=== PATIENT | male | born 1990 | race African-American/Black ===

== ENCOUNTER 2018-10-25 16:35 | Emergency (ER) | payer MEDICAID ==
[~2018-10-25] VITALS: Ht 182.9 cm; Wt 63.5 kg
[2018-10-25 16:42] VITALS: BP_SYST 150
--- NOTE | 2018-10-25 16:46 | NUR ---
Patient triaged and placed in waiting room. VSS and patient appears in no acute distress at this time. Accompanied by self, awaiting available bed, and MD notified of need for MSE.
--- NOTE | 2018-10-25 17:23 | NUR ---
Pt placed in bed 2
--- NOTE | 2018-10-25 17:28 | NUR ---
STEVAN Lawton at bedside examining patient.
--- NOTE | 2018-10-25 17:48 | NUR ---
Pt went to radiology in stable condition
[2018-10-25 18:40] LABS: BILIRUBIN,URINE NEGATIVE (NEGATIVE); CLARITY/URINE SL HAZY (CLEAR); COLOR,URINE YELLOW (YELLOW); GLUCOSE,URINE NEGATIVE (NEGATIVE); KETONES,URINE NEGATIVE (NEGATIVE); LEUKOCYTE ESTERASE ,URINE TRACE (NEGATIVE); NITRITE, URINE NEGATIVE (NEGATIVE); PROTEIN URINE NEGATIVE (NEGATIVE); UROBILINOGEN,URINE 0.2 (0.2-1.0)
[2018-10-25 19:10] LABS: BLOOD, URINE TRACE (NEGATIVE)
[2018-10-25 19:11] LABS: BACTERIA,URINE FEW /HPF (None Seen); WBC,URINE 20-50 /HPF (0-3)
[2018-10-25 19:12] LABS: MUCUS,URINE 2+ /LPF (None Seen)
[2018-10-25 19:19] VITALS: BP_SYST 150
--- NOTE | 2018-10-25 19:19 | NUR ---
Patient given written and verbal discharge instructions and verbalizes understanding. ER MD Dr. Quach discussed with patient the results and treatment provided. Patient in stable condition. ID arm band removed. Patient educated on pain management and to follow up with PMD within 2-3 days. Pain Scale 0/10. Opportunity for questions provided and answered. Medication side effect fact sheet provided.
== END 2018-10-25 19:19 | disposition home or self-care (01) ==
LOC: SED 16:35
DX: R36.1 Hematospermia (principal); K59.00 Constipation, unspecified
CPT/HCPCS: 76870-TC; 81000-TC; 87086; 99284

== ENCOUNTER 2018-10-27 14:08 | Emergency (ER) | payer MEDICAID ==
[~2018-10-27] VITALS: Ht 182.9 cm; Wt 63.5 kg
[2018-10-27 14:41] VITALS: BP_SYST 131
[2018-10-27] MEDS ORDERED: NACL 0.9% 1,000 ML IV ONE (16:20)
[2018-10-27] MEDS ORDERED: cefTRIAXone 250 MG in LIDOCAINE 1%, 20 ML MDV 0.9 ML IM ONE (16:45)
[2018-10-27 17:02] LABS: CALCIUM 9.6 mg/dL (8.4-11.0); CREATININE 1.09 mg/dL (0.55-1.30); POTASSIUM 3.4 mmol/L (3.5-5.1)
[2018-10-27 17:05] LABS: TOTAL BILIRUBIN 0.3 mg/dL (0.0-1.0)
[2018-10-27 17:12] LABS: BILIRUBIN,URINE NEGATIVE (NEGATIVE); BLOOD, URINE 3+ (NEGATIVE); CLARITY/URINE CLOUDY (CLEAR); COLOR,URINE YELLOW (YELLOW); GLUCOSE,URINE NEGATIVE (NEGATIVE); KETONES,URINE TRACE (NEGATIVE); LEUKOCYTE ESTERASE ,URINE 3+ (NEGATIVE); NITRITE, URINE NEGATIVE (NEGATIVE); PH,URINE 7.5 (5.0-8.0); PROTEIN URINE 2+ (NEGATIVE)
[2018-10-27] MEDS ORDERED: MORPHINE 4 MG/ML INJ. SYRINGE IVP ONE (17:15)
[2018-10-27 17:19] LABS: BASOPHILS # (AUTO) 0.2 K/uL (0.0-0.2); BASOPHILS % (AUTO) 1.3 % (0.0-2.0); EOSINOPHILS # (AUTO) 0.1 K/uL (0.0-0.4); EOSINOPHILS % (AUTO) 0.4 % (0.0-4.0); HEMATOCRIT 46.8 % (36-54); HEMOGLOBIN 15.9 g/dL (14.0-18.0); LYMPHOCYTES # (AUTO) 1.4 K/uL (1.0-5.5); MEAN CORPUSCULAR HEMOGLOBIN 31 pg (27-31); MEAN CORPUSCULAR HGB CONC 34 % (32-36); MEAN CORPUSCULAR VOLUME 90 fL (79.0-98.0); MONOCYTES # (AUTO) 0.8 K/uL (0.0-1.0); MONOCYTES % (AUTO) 5.8 % (1.7-9.3); NEUTROPHILS # (AUTO) 11.3 K/uL (1.8-7.7); NEUTROPHILS % (AUTO) 82.5 % (40.0-70.0); PLATELET COUNT (AUTO) 100 K/uL (130-430); RED CELL DISTRIBUTION WIDTH 13.1 % (9.0-15.0); WHITE BLOOD COUNT (AUTO) 13.8 K/uL (4.8-10.8)
[2018-10-27 17:20] LABS: BACTERIA,URINE MODERATE /HPF (None Seen); RBC,URINE 20-50 /HPF (0-3); WBC,URINE >100 /HPF (0-3)
[2018-10-27 18:45] VITALS: BP_SYST 131
== END 2018-10-27 18:45 | disposition home or self-care (01) ==
LOC: SED 14:08
DX: N45.1 Epididymitis (principal); R03.0 Elevated blood-pressure reading, without diagnosis of hypertension
CPT/HCPCS: 36415; 80053; 81000; 83690; 85025; 87086; 96372; 99283; J0696; J2001; J2270; J7030